=== PATIENT | female | born 1985 | race Hispanic/Latino ===

== ENCOUNTER 2017-08-03 11:19 | Emergency (ER) | payer BC ==
[2017-08-03] MEDS ORDERED: ONDANSETRON HCL 4 MG/2 ML VIAL ONE (11:36)
[2017-08-03] MEDS ORDERED: SODIUM CHLORIDE 0.9% 1000ML 1,000 ML IV ONE (11:36)
[2017-08-03] MEDS ORDERED: DiphenhydrAMINE HCL 50 MG/ML VIAL ONE (11:38)
[2017-08-03] MEDS ORDERED: DEXAMETHASONE SOD PHOSPHATE 10MG/ML 1ML VIAL ONE (11:38)
[2017-08-03] MEDS ORDERED: PROCHLORPERAZINE EDISYLATE 10 MG/2 ML VIAL ONE (11:38)
[2017-08-03 12:00] LABS: BASOPHILS % (AUTO) 0.7 % (0.0-5.0); EOSINOPHILS % (AUTO) 1.9 % (0.0-8.0); LYMPHOCYTES % (AUTO) 48.9 % (21.0-51.0); MEAN CORPUSCULAR HGB CONC 35.5 g/dL (32.0-36.0); MEAN CORPUSCULAR VOLUME 90.2 fL (79-99); MONOCYTES % (AUTO) 8.5 % (3.0-13.0); NUCLEATED RED BLOOD CELLS 0.1 % (0.0-0.19); PLATELET COUNT (AUTO) 175 K/uL (130-400); RED BLOOD CELL COUNT(AUTO) 3.77 MIL/uL (4.00-5.50); RED CELL DISTRIBUTION WIDTH 13.3 % (11.0-15.5)
[2017-08-03 12:15] LABS: POTASSIUM 3.8 mmol/L (3.5-5.1)
[2017-08-03 12:16] LABS: CREATININE 0.7 mg/dL (0.5-1.5)
[2017-08-03 12:25] LABS: ALBUMIN 3.2 g/dL (3.5-5.0); BILIRUBIN,TOTAL 0.3 mg/dL (0.2-1.0); TOTAL PROTEIN, SERUM 6.2 g/dL (6.0-8.3)
== END 2017-08-03 13:21 | disposition home or self-care (01) ==
LOC: EDH 11:19
DX: G43.909 Migraine, unspecified, not intractable, without status migrainosus (principal); Z88.0 Allergy status to penicillin; Z79.899 Other long term (current) drug therapy
CPT/HCPCS: 36415; 80053; 85025; 96361; 96374; 96375; 99284; J0780; J1100; J1200; J2405; J7030

== ENCOUNTER 2018-09-27 07:00 | Day surgery (SDC) | payer BC ==
[2018-09-26 12:50] VITALS: BP 97/60
[2018-09-26 13:13] LABS: BASOPHILS % (AUTO) 0.7 % (0.0-5.0); EOSINOPHILS % (AUTO) 0.3 % (0.0-8.0); LYMPHOCYTES % (AUTO) 28.9 % (21.0-51.0); MEAN CORPUSCULAR VOLUME 91.1 fL (79-99); MONOCYTES % (AUTO) 8.4 % (3.0-13.0); NEUTROPHILS % (AUTO) 61.7 % (40.0-77.0); PLATELET COUNT (AUTO) 236 K/uL (130-400); RED BLOOD CELL COUNT(AUTO) 4.06 MIL/uL (4.00-5.50); RED CELL DISTRIBUTION WIDTH 13.3 % (11.0-15.5); WHITE BLOOD COUNT (AUTO) 5.2 K/uL (4.8-10.8)
[2018-09-27] VITALS (16 sets, daily range): BP systolic 100–121; BP diastolic 57–78
[~2018-09-27] VITALS: Ht 166.4 cm; Wt 61.3 kg
[~2018-09-27 07:00] MED LIST: IBUP-2353 PO
[2018-09-27] MEDS ORDERED: OCTYL 2-CYANOACRYLATE 1 EACH TP ONE (07:17)
[2018-09-27] MEDS ORDERED: BUPIVACAINE/PF 0.25% 30ML VIAL IJ ONE (07:17)
[2018-09-27] MEDS ORDERED: LACTATED RINGERS 1000ML 1,000 ML IV SCH (08:00)
[2018-09-27] MEDS ORDERED: GLYCOPYRROLATE 1 MG/5 ML SYRINGE ONE ×2 (08:06→09:14)
[2018-09-27] MEDS ORDERED: DEXAMETHASONE SOD PHOSPHATE 10MG/ML 1ML VIAL ONE (08:06)
[2018-09-27] MEDS ORDERED: LIDOCAINE PF 2% 5ML ABBOJECT ONE (08:06)
[2018-09-27] MEDS ORDERED: MIDAZOLAM HCL 1 MG/ML 2ML VIAL ONE (08:06)
[2018-09-27] MEDS ORDERED: ONDANSETRON HCL 4 MG/2 ML VIAL ONE (08:06)
[2018-09-27] MEDS ORDERED: SUCCINYLCHOLINE 200MG/10ML SYR ONE (08:06)
[2018-09-27] MEDS ORDERED: ROCURONIUM 10MG/1ML SYR 10 MG/ML ML ONE (08:07)
[2018-09-27] MEDS ORDERED: FENTANYL CITRATE PF 50 MCG/1 ML 2ML VIAL ONE ×2 (08:07)
[2018-09-27] MEDS ORDERED: NEOSTIGMINE 5MG/5ML SYR IV ONE (08:07)
[2018-09-27] MEDS ORDERED: PROPOFOL 10 MG/ML 20ML VIAL IV ONE (08:07)
[2018-09-27] MEDS ORDERED: EPHEDRINE SULFATE 50 MG/ML AMPULE ONE (08:47)
[2018-09-27] MEDS ORDERED: NALOXONE HCL 0.4 MG/1 ML ML ONE (09:19)
[2018-09-27] MEDS ORDERED: MEPERIDINE-PF 25 MG/ML SYG ONE ×2 (09:42→09:50)
--- NOTE | 2018-09-27 10:30 | NUR ---
ASSESSMENT RECEIVED PT FROM PACU STAFF Triston ELISE RN. PT DROWSY BUT AROUSABLE. DERMABOND X1 TO LOWER ABD. DRY AND INTACT. SOFT TO TOUCH. NO BLEEDING, OOZING NOTED TO SITE. MOTHER AND FIANCE AT BEDSIDE.
--- NOTE | 2018-09-27 10:35 | NUR ---
MEDICATION PT STATES SHE DOES NOT DO WELL WITH TYLENOL WITH CODEINE. STATES SHE GETS HEADACHES. CALLED DR. IRVING AND INFORMED OF PTS CONCERN. ORDERS RECEIVED TO CANCEL TYLENOL WITH CODEINE AND ONLY USE MOTRIN FOR PAIN CONTROL. INFORMED BOTH PT AND PTS FIANCE OF DR. SHELL ORDER. ALL THREE VERBALIZED UNDERSTANDING.
--- NOTE | 2018-09-27 11:30 | NUR ---
DISCHARGE ORAL AND WRITTEN DISCHARGE INSTRUCTIONS GIVEN OT PT AND PT'S MOTHER, FLAQUITA ALONG WITH PRESCRIPTION. ANITRA PAD IN PLACE. NO BLEEDING, OOZING NOTED. DERMABOND X1 CLEAN, DRY, AND SOFT. NO OTHER QUESTIONS AT THIS TIME.
== END 2018-09-27 11:45 | disposition home or self-care (01) ==
LOC: DAH 07:00
DX: N80.1 Endometriosis of ovary (principal); N80.0 Endometriosis of uterus; N94.6 Dysmenorrhea, unspecified; Z79.899 Other long term (current) drug therapy; Z98.890 Other specified postprocedural states
CPT/HCPCS: 36415; 58662; 84703; 85025; 86850; 86900; 86901; A4215; A4351; A4930; C1769 ×2; G0168; J0330; J1100; J2001; J2175 ×2; J2250; J2310; J2405; J2704; J2710; J3010 ×2; J3490 ×4; J7030; J7120